=== PATIENT | female | born 1990 | race Two or more races ===

== ENCOUNTER 2019-03-09 20:36 | Emergency (ER) | payer MEDICAID ==
[~2019-03-09] VITALS: Ht 152.4 cm; Wt 588.0 kg
[2019-03-09 22:25] VITALS: BP 102/71
== END 2019-03-09 22:25 | disposition home or self-care (01) ==
LOC: ED 20:36
DX: J10.1 Influenza due to other identified influenza virus with other respiratory manifestations (principal)
CPT/HCPCS: 87804